=== PATIENT | male | born 1925 | race Caucasian/White ===

== ENCOUNTER → 2016-09-13 | Outpatient (REF) | payer MEDICARE, BC ==
[~2016-09-13] MED LIST: /MOM400 PO; /RISE30TA; /WARF5TA; /WARF5TA OR; ACET65TA; ACTO30TA; AMLO10TA PO; ASPI-125 PO; ASPI325T PO; ASPI81TA83; ASPI81TA85 PO; BABY81CH PO; BISA10SU2; BISA5TA; CALC12502 PO; CENTTAB PO; COLA100C2; DEPA250T3; DEPA500T; DOXA1TAB40 PO; GLIM1TAB PO; GLUC500T; ISOS30BRAN; JANU100T PO; JANUVIA PO; LATA5OPD OU; LEVO75TA2 PO; LIPI20TA PO; LISI5TAB; LOPR50TA; MAG OX PO; MEGA40SU PO; METHAZOLAMIDE; METHAZOLAMIDE PO; MILKSUS; NAME7CAP PO; PANT40TA2 PO; PLAV75TA2; PROP40TA OR; SILV1CRE19 TOP; SIMV40TA2 PO; SITA50TAB PO; SYNT75TA PO; TOPR25TA; TYL; TYLE325T5 PO; VENL75TA2 OR; VENL75TA2 PO; VIT D 2000 PO; VITA1TAB7 PO; WARF5VL PO; ZOLO25TA; ZOLO50TA PO; [UNRECOGNIZED DRUG - OTHER]; januvia PO
[2016-09-13 17:48] LABS: ANION GAP 10 MEQ/L (8-16); BLOOD UREA NITROGEN 47 MG/DL (7-18); CALCIUM LEVEL 9.1 MG/DL (8.8-10.2); CARBON DIOXIDE LEVEL 28 MEQ/L (21-32); CHLORIDE LEVEL 106 MEQ/L (98-107); CREATININE FOR GFR 1.21 MG/DL (0.70-1.30); GLOMERULAR FILTRATION RATE > 60.0 (>35); GLUCOSE, FASTING 178 MG/DL (83-110); POTASSIUM SERUM 4.5 MEQ/L (3.5-5.1); SODIUM LEVEL 144 MEQ/L (136-145)
== END ==
LOC: M SFHCCLAY 16:16
PROVIDERS: ATTEND Family Medicine
DX: E11.9 Type 2 diabetes mellitus without complications (principal)
CPT/HCPCS: 36415; 80048; 83036; 84443; G0463

== ENCOUNTER → 2016-09-14 | Outpatient (CLI) | payer MEDICARE, BC | LOC: M LAB 13:25 | PROVIDERS: ATTEND Ophthalmology | DX: H25.13 Age-related nuclear cataract, bilateral (principal) ==